=== PATIENT | female | born 1945 | race Caucasian/White ===

== ENCOUNTER 2018-11-22 05:22 | Day surgery (SDC) | payer MEDICARE, OTHER ==
[2018-11-21 10:26] LABS: BASOPHILS % (AUTO) 0.5 % (0-1); EOSINOPHILS % (AUTO) 0.4 % (0-6); HEMATOCRIT 36.6 % (35.0-45.0); HEMOGLOBIN 12.6 g/dl (12.0-16.0); LYMPHOCYTES # (AUTO) 1.9 X10'3 (1.1-4.8); LYMPHOCYTES % (AUTO) 28.7 % (21-51); MEAN CORPUSCULAR HEMOGLOBIN 33.2 PG (27.0-31.0); MEAN CORPUSCULAR HGB CONC 34.3 g/dL (33.0-36.5); MEAN CORPUSCULAR VOLUME 96.8 FL (78-98); MEAN PLATELET VOLUME 7.4 FL (7.4-10.4); MONOCYTES # (AUTO) 0.3 X10'3 (0-0.9); MONOCYTES % (AUTO) 4.8 % (2-12); NEUTROPHILS # (AUTO) 4.4 X10'3 (1.8-7.7); NEUTROPHILS % (AUTO) 65.6 % (42-75); PLATELET COUNT 352 X10'3 (140-440); RED BLOOD COUNT 3.79 X10'6 (4.20-5.60); RED CELL DISTRIBUTION WIDTH 13.3 % (11.5-14.5); WHITE BLOOD COUNT 6.7 X10'3 (4.5-11.0)
[2018-11-21 10:40] LABS: PARTIAL THROMBOPLASTIN TIME 28 SECONDS (22-32)
[2018-11-21 10:42] LABS: ALBUMIN 3.4 G/DL (3.4-5.0); ANION GAP 11 (8-16); BLOOD UREA NITROGEN 14 MG/DL (7-18); BUN/CREATININE RATIO 23.7 (6.6-38.0); CALCIUM 8.1 MG/DL (8.5-10.1); CHLORIDE 107 MMOL/L (99-107); CREATININE 0.59 MG/DL (0.40-0.90); GLUCOSE 91 MG/DL (70-104); SODIUM 142 MMOL/L (135-145); TOTAL CARBON DIOXIDE 23.8 MMOL/L (24-32); eGFR > 90 ML/MIN
[2018-11-22] VITALS (11 sets, daily range): BP systolic 91–125; BP diastolic 36–69
[~2018-11-22] VITALS: Ht 154.9 cm; Wt 62.4 kg
[2018-11-22] MEDS ORDERED: normal saline 1,000 ML IV SCH (06:20)
[2018-11-22] MEDS ORDERED: acetylcysteine 200 MG/ml 4ml vial PO PRN (06:20)
[2018-11-22] MEDS ORDERED: diphenhydrAMINE 25mg capsule PO PRN (06:20)
[2018-11-22] MEDS ORDERED: ALPR-624 PO (06:30)
[2018-11-22] MEDS ORDERED: FLUT16SP10 (06:30)
[2018-11-22] MEDS ORDERED: ESTR1TAB19 PO (06:30)
[2018-11-22] MEDS ORDERED: LORazepam 0.5 MG tablet PO PRN (06:30)
[2018-11-22] MEDS ORDERED: MONT10TA24 PO (06:30)
[2018-11-22] MEDS ORDERED: LIDOcaine/PRILOcaine 5gm cream TP ONE (06:50)
[2018-11-22] MEDS ORDERED: fentaNYL/PF 50MCG/1 ML 2ML syringe ONE (07:31)
[2018-11-22] MEDS ORDERED: midazolam 2 mg/2 ml injection ONE (07:31)
[2018-11-22] MEDS ORDERED: iohexol 350MG/ML 100ml bottle IV ONE (07:32)
[2018-11-22] MEDS ORDERED: heparin 1,000unit/ml 10ml vial 10 ML ONE (07:32)
[2018-11-22] MEDS ORDERED: LIDOcaine 1% (10mg/ml)w/preservative injection 20ml MDV ONE (07:32)
[2018-11-22] MEDS ORDERED: nitroGLYCERIN-Tridil 50MG/D5W 250 ML IV ONE (07:32)
[2018-11-22] MEDS ORDERED: iohexol 350 MG/ML 50ML vial IV ONE (07:32)
[2018-11-22] MEDS ORDERED: verapamil 2.5 mg/ml inj IV ONE (07:36)
[2018-11-22] MEDS ORDERED: atropine 0.1mg/ml 10ml syringe ONE (08:14)
[2018-11-22 08:45] LABS: ISTAT Hct MIX 30 %PCV (35-48); ISTAT O2 SATURATION MIX VENOUS 63 % (60-80); ISTAT SOURCE MIX
--- NOTE | 2018-11-22 09:10 | NUR ---
md at bedside. 2ml removed from vascular band. pt denies pain. states ,"my fingers are a little tingly but that happens when they are cold.". will continue to monitor. SpO2 on rt thumb. 90%. will continue to monitor.
[2018-11-22] MEDS ORDERED: HYDROcodone/acetaminophen 5mg/325mg tablet PO PRN (14:15)
[2018-11-22] MEDS ORDERED: morphine 2 MG/ML inj. syringe IV PRN (14:15)
[2018-11-22] MEDS ORDERED: HYDROcodone/acetaminophen 5mg/325mg tablet PO ONE (14:15)
[2018-11-22] MEDS ORDERED: HYDROcodone/acetaminophen 10/325mg tab PO PRN (14:15)
[2018-11-22] MEDS ORDERED: dicyclomine 10 MG capsule PO ONE (14:15)
[2018-11-22] MEDS ORDERED: diphenhydrAMINE 25mg capsule PO ONE (14:20)
[2018-11-29 07:35] LABS: ISTAT HGB ART 9.9 g/dl (12.0-16.0); ISTAT Hct ART 29 %PCV (35-48); ISTAT O2 SATURATION ARTERIAL 98 % (95-98); ISTAT SOURCE ART
== END 2018-11-22 15:05 | disposition home or self-care (01) ==
LOC: SSTAY O 05:22
PROVIDERS: ATTEND Internal Medicine Cardiovascular Disease
DX: I47.2 Ventricular tachycardia (principal); I25.10 Atherosclerotic heart disease of native coronary artery without angina pectoris; J44.9 Chronic obstructive pulmonary disease, unspecified; F17.210 Nicotine dependence, cigarettes, uncomplicated; Z79.01 Long term (current) use of anticoagulants; Z79.899 Other long term (current) drug therapy
CPT/HCPCS: 36415; 80048; 82803; 85014; 85025; 85610; 85730; 93005; 93460; 99152; 99153; C1769; C1894; J0461; J1644; J2001; J2250; J3010; J7030; Q0163; Q9967; A4620; A6258; J3490

== ENCOUNTER 2022-06-15 11:27 | Day surgery (SDC) | payer OTHER, MEDICARE ==
[2022-06-12 08:04] LABS: BASOPHILS % (AUTO) 0.3 % (0-1); EOSINOPHILS % (AUTO) 0.8 % (0-6); HEMATOCRIT 37.2 % (35.0-45.0); HEMOGLOBIN 12.4 g/dl (12.0-16.0); LYMPHOCYTES # (AUTO) 1.7 X10'3 (1.1-4.8); LYMPHOCYTES % (AUTO) 25.9 % (21-51); MEAN CORPUSCULAR HEMOGLOBIN 31.9 PG (27.0-31.0); MEAN CORPUSCULAR HGB CONC 33.3 g/dL (33.0-36.5); MEAN PLATELET VOLUME 7.1 FL (7.4-10.4); MONOCYTES # (AUTO) 0.4 X10'3 (0-0.9); MONOCYTES % (AUTO) 6.6 % (2-12); NEUTROPHILS # (AUTO) 4.3 X10'3 (1.8-7.7); NEUTROPHILS % (AUTO) 66.4 % (42-75); PLATELET COUNT 312 X10'3 (140-440); RED BLOOD COUNT 3.87 X10'6 (4.20-5.60); RED CELL DISTRIBUTION WIDTH 13.3 % (11.5-14.5); WHITE BLOOD COUNT 6.5 X10'3 (4.5-11.0)
[2022-06-12 08:16] LABS: APTT 27 SECONDS (22-32)
[2022-06-12 08:20] LABS: ALBUMIN 3.3 G/DL (3.4-5.0); ANION GAP 6 (8-16); BLOOD UREA NITROGEN 16 MG/DL (7-18); BUN/CREATININE RATIO 25.4 (10.0-20.0); CALCIUM 8.5 MG/DL (8.5-10.1); CHLORIDE 105 MMOL/L (99-107); CHOL/HDL RATIO 2.1 (0.00-4.99); CHOLESTEROL 168 MG/DL (0-200); CREATININE 0.63 MG/DL (0.40-0.90); GLUCOSE 87 MG/DL (70-104); HDL CHOLESTEROL 79 MG/DL (35-60); LDL CHOLESTEROL 64 MG/DL (50-100); POTASSIUM 3.9 MMOL/L (3.5-5.1); SODIUM 138 MMOL/L (135-145); TOTAL CARBON DIOXIDE 27.4 MMOL/L (24-32); TRIGLYCERIDES 110 MG/DL (20-135); eGFR > 90 ML/MIN
[~2022-06-15] VITALS: Ht 157.5 cm; Wt 68.6 kg
[2022-06-15] VITALS (11 sets, daily range): BP systolic 110–150; BP diastolic 45–97
[~2022-06-15 11:27] MED LIST: ALPR-624 PO; ESTR1TAB19 PO; FLUT16SP10; MONT-40 PO
[2022-06-15] MEDS ORDERED: LORazepam 0.5 MG tablet PO PRN (11:40)
[2022-06-15] MEDS ORDERED: normal saline 1,000 ML IV SCH (11:40)
[2022-06-15] MEDS ORDERED: diphenhydrAMINE 25mg capsule PO PRN (11:40)
[2022-06-15] MEDS ORDERED: ALPR0.255 PO (12:20)
[2022-06-15] MEDS ORDERED: ASPI-611 PO (12:20)
[2022-06-15] MEDS ORDERED: DORZ10DR10 (12:20)
[2022-06-15] MEDS ORDERED: ROSU20TA31 PO (12:20)
[2022-06-15] MEDS ORDERED: ATRNS BOTHNARES (12:20)
[2022-06-15] MEDS ORDERED: nitroGLYCERIN-Tridil 50MG/D5W 250 ML IV ONE (13:37)
[2022-06-15] MEDS ORDERED: LIDOcaine 1% (10mg/ml) 2ml vial ONE (13:38)
[2022-06-15] MEDS ORDERED: heparin 1,000unit/ml 10ml vial 10 ML ONE (13:38)
[2022-06-15] MEDS ORDERED: fentaNYL/PF 50MCG/1 ML 2ML syringe ONE (13:38)
[2022-06-15] MEDS ORDERED: midazolam 1 mg/ML 2ml injection ONE (13:38)
[2022-06-15] MEDS ORDERED: verapamil 2.5 mg/ml inj IV ONE (13:38)
[2022-06-15] MEDS ORDERED: iohexol 350MG/ML 100ml bottle IV ONE (13:38)
[2022-06-15] MEDS ORDERED: LIDOcaine 1% 30ml preserv. free vial ONE (14:07)
== END 2022-06-15 18:30 | disposition home or self-care (01) ==
LOC: SSTAY O 11:27
PROVIDERS: ATTEND Student in an Organized Health Care Education/Training Program
DX: R07.89 Other chest pain (principal); I25.10 Atherosclerotic heart disease of native coronary artery without angina pectoris; E78.5 Hyperlipidemia, unspecified; I47.1 Supraventricular tachycardia; I49.5 Sick sinus syndrome; Z95.0 Presence of cardiac pacemaker; Z79.899 Other long term (current) drug therapy; Z79.82 Long term (current) use of aspirin; Z86.16 Personal history of COVID-19; Z87.891 Personal history of nicotine dependence; Z88.5 Allergy status to narcotic agent
CPT/HCPCS: 36415; 80048; 80061; 85025; 85610; 85730; 93005; 93458; 99152; 99153; C1760; C1894; J1644; J2250; J3010; J3490; J7030; Q0163; Q9967; A6258; C1725

== ENCOUNTER 2022-07-13 14:11 | Emergency (ER) | payer OTHER, MEDICARE ==
[~2022-07-13] VITALS: Ht 157.5 cm; Wt 66.4 kg
[~2022-07-13 14:11] MED LIST changes: -ALPR-624 PO; +ALPR0.255 PO; +ASPI-611 PO; +ATRNS BOTHNARES; +DORZ10DR10; +ROSU20TA31 PO
[2022-07-13 14:42] LABS: BASOPHILS % (AUTO) 0.5 % (0-1); EOSINOPHILS # (AUTO) 0.1 X10'3 (0-0.9); EOSINOPHILS % (AUTO) 0.8 % (0-6); HEMATOCRIT 37.4 % (35.0-45.0); HEMOGLOBIN 12.4 g/dl (12.0-16.0); LYMPHOCYTES # (AUTO) 2.7 X10'3 (1.1-4.8); LYMPHOCYTES % (AUTO) 37.4 % (21-51); MEAN CORPUSCULAR HEMOGLOBIN 32.1 PG (27.0-31.0); MEAN CORPUSCULAR HGB CONC 33.2 g/dL (33.0-36.5); MEAN CORPUSCULAR VOLUME 96.6 FL (78-98); MEAN PLATELET VOLUME 7.1 FL (7.4-10.4); MONOCYTES # (AUTO) 0.5 X10'3 (0-0.9); MONOCYTES % (AUTO) 6.9 % (2-12); NEUTROPHILS # (AUTO) 3.9 X10'3 (1.8-7.7); NEUTROPHILS % (AUTO) 54.4 % (42-75); PLATELET COUNT 331 X10'3 (140-440); RED BLOOD COUNT 3.87 X10'6 (4.20-5.60); RED CELL DISTRIBUTION WIDTH 13.1 % (11.5-14.5); WHITE BLOOD COUNT 7.1 X10'3 (4.5-11.0)
[2022-07-13 14:49] LABS: ALANINE AMINOTRANSFERASE 17 U/L (12-78); ALBUMIN 3.7 G/DL (3.4-5.0); ALKALINE PHOSPHATASE 99 IU/L (46-116); ANION GAP 4 (8-16); ASPARTATE AMINO TRANSFERASE 20 U/L (10-37); BILIRUBIN,TOTAL 0.3 MG/DL (0.1-1.0); BLOOD UREA NITROGEN 11 MG/DL (7-18); BUN/CREATININE RATIO 16.4 (10.0-20.0); CHLORIDE 99 MMOL/L (99-107); CREATININE 0.67 MG/DL (0.40-0.90); GLUCOSE 103 MG/DL (70-104); SODIUM 134 MMOL/L (135-145); TOTAL CARBON DIOXIDE 31.5 MMOL/L (24-32); TOTAL PROTEIN 7.3 G/DL (6.4-8.2); eGFR 86 ML/MIN
[2022-07-13 14:57] LABS: MAGNESIUM 2.1 MG/DL (1.5-2.4)
[2022-07-13 15:17] VITALS: BP 146/57
== END 2022-07-13 18:00 | disposition home or self-care (01) ==
LOC: ER 14:11
DX: R07.9 Chest pain, unspecified (principal); Z88.6 Allergy status to analgesic agent; Z88.5 Allergy status to narcotic agent; Z79.899 Other long term (current) drug therapy
CPT/HCPCS: 36415; 71045; 80053; 83735; 83880; 84484; 85025; 93005; 99285